=== PATIENT | female | born 1960 | race Caucasian/White ===

== ENCOUNTER 2017-07-04 12:53 | Emergency (ER) | payer MEDICARE ==
[~2017-07-04] VITALS: Ht 160 cm; Wt 86.4 kg
[2017-07-04] MEDS ORDERED: PANT40TA25 PO (13:04)
[2017-07-04] MEDS ORDERED: TRAM50TA4 PO (13:04)
[2017-07-04] MEDS ORDERED: NAPR-58 PO (13:04)
[2017-07-04] MEDS ORDERED: AMLO-511 PO (13:04)
[2017-07-04] MEDS ORDERED: KETOROLAC TROMETHAMINE 60 MG/2 ML VIAL IM ONE (14:30)
[2017-07-04] MEDS ORDERED: ACETAMINOPHEN 500 MG TABLET PO ONE (14:30)
[2017-07-04 17:45] VITALS: BP 120/80
== END 2017-07-04 18:22 | disposition home or self-care (01) ==
LOC: EMS 12:53
DX: M19.011 Primary osteoarthritis, right shoulder (principal); M46.82 Other specified inflammatory spondylopathies, cervical region; I10 Essential (primary) hypertension
CPT/HCPCS: 72050; 73030; 73200; 96372; 99284; J1885

== ENCOUNTER 2022-09-12 18:43 | Emergency (ER) | payer MEDICARE ==
[~2022-09-12] VITALS: Ht 154.9 cm; Wt 81.8 kg
[~2022-09-12 18:43] MED LIST: AMLO-257 PO; NAPR-1025 PO; PANT-31 PO; TRAM-559 PO
[2022-09-12 18:57] VITALS: TEMP 98.3
[2022-09-12] MEDS ORDERED: HYDROCODONE/ACETAMINOPHEN 5-325 MG TABLET PO ONE (21:00)
[2022-09-12] MEDS ORDERED: TRAM-559 PO (22:54)
[2022-09-12 23:28] VITALS: BP 119/71; PULSE 77; RESP 18
== END 2022-09-12 23:30 | disposition home or self-care (01) ==
LOC: EMS 18:43
DX: S16.1XXA Strain of muscle, fascia and tendon at neck level, initial encounter (principal); S80.02XA Contusion of left knee, initial encounter; S80.01XA Contusion of right knee, initial encounter; M79.18 Myalgia, other site; I10 Essential (primary) hypertension; X58.XXXA Exposure to other specified factors, initial encounter; Y93.89 Activity, other specified; Y92.89 Other specified places as the place of occurrence of the external cause; Y99.8 Other external cause status
CPT/HCPCS: 72040; 72072; 99284; 73562-TC; Z7502; Z7610

== ENCOUNTER 2023-01-13 10:15 | Emergency (ER) | payer MEDICARE ==
[~2023-01-13] VITALS: Ht 157.5 cm; Wt 88.6 kg
[2023-01-13 11:19] VITALS: TEMP 97.8
[2023-01-13] MEDS ORDERED: KETOROLAC TROMETHAMINE 60 MG/2 ML VIAL IM ONE (11:45)
[2023-01-13 18:48] VITALS: BP 133/78; PULSE 74; RESP 18
[2023-01-13] MEDS ORDERED: ACET-784 PO (18:54)
== END 2023-01-13 19:05 | disposition home or self-care (01) ==
LOC: EMS 10:25
DX: M25.562 Pain in left knee (principal); I10 Essential (primary) hypertension; Z96.652 Presence of left artificial knee joint
CPT/HCPCS: 99284; 29505; 72100; 73562; 96372; J1885